=== PATIENT | female | born 1965 | race African-American/Black ===

== ENCOUNTER 2022-06-29 18:14 | Emergency (ER) | payer BC ==
[2022-06-29 18:25] VITALS: RESP 18; TEMP 98; BMI 21.7
[2022-06-29] MEDS ORDERED: KETOROLAC TROMETHAMINE 10 MG TABLET PO ONE (22:01)
[2022-06-29] MEDS ORDERED: SODIUM CHLORIDE 0.9% 500 ML INFUS.BAG IV ONE (22:13)
[2022-06-29] MEDS ORDERED: ACETAMINOPHEN 1000 MG/100 ML BAG IVPB ONE (22:13)
[2022-06-29] MEDS ORDERED: KETOROLAC TROMETHAMINE 15 MG/ML VIAL IVPUSH ONE (22:13)
[2022-06-29] MEDS ORDERED: KETOROLAC TROMETHAMINE 15 MG/ML VIAL ONE (22:24)
[2022-06-29] MEDS ORDERED: ACETAMINOPHEN INJECTION 100 ML IVPB ONE (22:24)
[2022-06-29 23:03] LABS: BASO % 0.7 % (0-2.0); EOS % 1.5 % (0-4.5); HEMATOCRIT 31.5 % (32.4-45.2); HEMOGLOBIN 10.6 GM/dL (10.7-15.3); LYMPH % 34.3 % (8-40); MCH 24.5 pg (25.7-33.7); MCHC 33.7 g/dl (32.0-36.0); MEAN CELL VOLUME 72.8 fl (80-96); MEAN PLT VOLUME 8.1 fl (7.5-11.1); MONO % 7.9 % (3.8-10.2); NEUT % 55.6 % (42.8-82.8); PLATELET COUNT 169 10^3/uL (134-434); RBC 4.33 M/mm3 (3.60-5.2); RDW 20.2 % (11.6-15.6); RETICULOCYTES 3.39 % (0.5-1.5)
[2022-06-29 23:11] LABS: BLOOD UREA NITROGEN 11.1 mg/dL (7-18); CALCIUM 8.6 mg/dL (8.5-10.1)
[2022-06-29 23:14] LABS: CREATININE 0.6 mg/dL (0.55-1.3)
[2022-06-29 23:16] LABS: BILIRUBIN,TOTAL 1.1 mg/dL (0.2-1); TOT PROT 6.8 g/dl (6.4-8.2)
[2022-06-30 00:33] VITALS: BP 140/81; PULSE 82
== END 2022-06-30 00:33 | disposition home or self-care (01) ==
LOC: JER 18:14
PROC: 3E0333Z Introduction of Anti-inflammatory into Peripheral Vein, Percutaneous Approach (ICD-10-PCS; principal; 2022-06-29)
PROC: 3E0333Z Introduction of Anti-inflammatory into Peripheral Vein, Percutaneous Approach (ICD-10-PCS; 2022-06-29)
DX: M79.651 Pain in right thigh (principal); R05.1 Acute cough
CPT/HCPCS: 0241U-QW; 36415; 71046-TC-FY; 80053; 85025; 85045; 99284-25

== ENCOUNTER 2024-09-26 01:09 | Emergency (ER) | payer BC ==
[2024-09-26 01:16] VITALS: BP 148/77; PULSE 76; RESP 16; TEMP 97.9; BMI 25.4
[2024-09-26] MEDS ORDERED: ONDANSETRON 4 MG/2 ML VIAL ONE (02:11)
[2024-09-26] MEDS: SODIUM CHLORIDE 0.9% 500 ML INFUS.BAG IV ONE (02:19)
[2024-09-26] MEDS: ONDANSETRON 4 MG/2 ML VIAL IVPUSH ONE (02:19)
== END 2024-09-26 03:30 | disposition home or self-care (01) ==
LOC: JER 01:09
PROC: 3E033GC Introduction of Other Therapeutic Substance into Peripheral Vein, Percutaneous Approach (ICD-10-PCS; principal; 2024-09-26)
DX: A05.9 Bacterial foodborne intoxication, unspecified (principal); R11.10 Vomiting, unspecified; R10.9 Unspecified abdominal pain
CPT/HCPCS: 99284-25